=== PATIENT | male | born 1960 | race Caucasian/White ===

== ENCOUNTER 2016-11-12 14:20 | Outpatient (CLI) ==
[2016-07-01 14:35] VITALS: BMI 22.3
== END 2016-11-12 14:21 | disposition home or self-care (01) ==
LOC: LAB 14:20
PROVIDERS: ATTEND Psychiatry & Neurology Neurology
DX: G60.9 Hereditary and idiopathic neuropathy, unspecified (principal); I10 Essential (primary) hypertension; E78.5 Hyperlipidemia, unspecified; Z12.5 Encounter for screening for malignant neoplasm of prostate
CPT/HCPCS: 36415

== ENCOUNTER 2017-04-01 16:29 | Outpatient (CLI) ==
[2016-07-01 14:35] VITALS: BMI 22.3
[2017-04-01 16:43] LABS: BASOPHILS # (AUTO) 0.1 K/uL (0-0.2); BASOPHILS % (AUTO) 0.9 % (0.0-3.0); EOSINOPHILS # (AUTO) 0.2 K/ul (0.0-0.7); EOSINOPHILS % (AUTO) 2.4 % (0.0-7.0); HEMATOCRIT 37.5 % (42.0-52.0); HEMOGLOBIN 12.7 g/dl (14.0-18.0); IMMATURE GRANULOCYTE % (AUTO) 0.3 % (0.0-5.0); LYMPHOCYTES # (AUTO) 1.5 K/uL (0.60-3.4); LYMPHOCYTES % (AUTO) 19.1 (10.0-50.0); MEAN CORPUSCULAR HEMOGLOBIN 32.5 pg (27.0-31.0); MEAN CORPUSCULAR HGB CONC 33.9 (31.8-35.4); MEAN CORPUSCULAR VOLUME 95.9 fl (80.0-94.0); MONOCYTES # (AUTO) 0.7 K/uL (0.4-2.0); MONOCYTES % (AUTO) 8.4 (0-10); NEUTROPHILS # (AUTO) 5.4 K/ul (2.0-6.9); NEUTROPHILS % (AUTO) 68.9; PLATELET COUNT 281 10^3/uL (140-440); RED BLOOD COUNT 3.91 10^6/ul (4.70-6.10); WHITE BLOOD COUNT 7.86 K/ul (4.2-10.2)
[2017-04-01 17:19] LABS: ALBUMIN 3.9 g/dL (3.4-5.0); ALBUMIN/GLOBULIN RATIO 1.44; ANION GAP 12.3; BILIRUBIN,TOTAL 0.25 mg/dL (0.00-1.20); BUN/CREATININE RATIO 14.77; CALCIUM 8.8 mg/dL (8.2-10.2); CHOL/HDL RATIO 3.3 (4.5-6.4); CREATININE 0.88 mg/dL (0.60-1.10); POTASSIUM 4.3 mmol/L (3.5-5.1); TOTAL PROTEIN 6.6 g/dL (6.4-8.2)
== END 2017-04-01 16:30 | disposition home or self-care (01) ==
LOC: LAB 16:29
PROVIDERS: ATTEND Emergency Medicine
DX: E78.5 Hyperlipidemia, unspecified (principal); G62.9 Polyneuropathy, unspecified; I10 Essential (primary) hypertension; Z12.5 Encounter for screening for malignant neoplasm of prostate
CPT/HCPCS: 36415; 80053; 80061; 84443; 85025

== ENCOUNTER 2017-06-19 11:38 | Outpatient (CLI) ==
[2016-07-01 14:35] VITALS: BMI 22.3
--- NOTE | 2017-06-19 12:08 | DI ---
EXAM: Radiographs, left elbow HISTORY: Left elbow pain and swelling. COMPARISON: None available. TECHNIQUE: Three views. FINDINGS: Bone mineralization is normal. No fracture or dislocation identified. Moderate to severe marginal osteophyte formation seen at the humeral ulnar joint and radiocapitellar joint. Some joint space narrowing also present. Well corticated ossific fragment adjacent to the medial humeral condy le noted. No rito erosions are seen. There is an elbow joint effusion. IMPRESSION: 1. 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 2. Possible old medial collateral ligament injury.
== END 2017-06-19 11:39 | disposition home or self-care (01) ==
LOC: RAD 11:38
PROVIDERS: ATTEND Physician Assistant
DX: M25.522 Pain in left elbow (principal); M25.422 Effusion, left elbow

== ENCOUNTER 2017-08-21 12:14 | Outpatient (CLI) ==
[2016-07-01 14:35] VITALS: BMI 22.3
--- NOTE | 2017-08-21 13:57 | MRI ---
EXAM: MRI of the left elbow without contrast COMPARISON: Left elbow radiographs 06/19/2017. HISTORY: Left elbow swelling and pain. No known injury. TECHNIQUE: Multiplanar noncontrast MR images of the left elbow were acquired using a 1.2 Anna magne t. Several sequences are moderately limited by patient motion artifact. FINDINGS: There is marked osteoarthrosis involving the ulnohumeral and radiocapitellar articulations with full-thickness cartilage defects and large marginal osteophytes with subchondral edema/cystic c hange/sclerosis. Marrow edema within the head and neck of the radius without evidence of an acute fr acture or osteomyelitis. There is a moderate sized joint effusion and with a large loose body early childhood specialist iorly measuring 1.4 cm in size. Chronic-appearing deformity of the medial epicondyle/condyle of the humerus with multiple well corticated ossifications along the attachment the ulnar collateral ligamen t and common flexor tendon suggesting sequela of old trauma/heterotopic ossification. Limited assess ment of the collateral ligaments on this non arthrographic study. There is abnormal signal and morph ology of the proximal fibers of the ulnar collateral ligament with attenuation ligament fibers consis tent with least a high-grade partial tear and possibly a complete tear with at most thin intact fiber s remaining. There is also partial tear/stripping of the distal fibers of the ulnar collateral ligame nt at its ulnar attachment. Marked common flexor tendinosis with partial tear of the deep fibers. T here appear to be some thin residual intact fibers remaining. Sprain with scarring of the radial collateral ligament without a definite full-thickness tear. Commo n extensor tendinosis with partial tear of the insertional fibers though intact fibers are identified . The ulnar nerve is displaced anteriorly and medially relative to the cubital tunnel with nerve extend ing into the medial subcutaneous tissues along the medial/posteromedial margin of the medial epicondy le at that level. No soft tissue mass identified. There is mild distal triceps tendinosis and enthesopathy without a tendon tear. Moderate distal dean ps tendinosis enthesopathy without a tendon tear. The distal brachialis tendon is intact. IMPRESSION: 1. Marked degenerative changes of the elbow as described. Moderate joint effusion, nonspecific. Os teochondral body posteriorly. 2. Chronic-appearing deformity of the medial epicondyle/condyle of the humerus with well corticated ossification along the attachment of the ulnar collateral ligament and common flexor tendon related t o sequela of old trauma/heterotopic ossification. Near complete to complete tear of the proximal fibe rs of the ulnar collateral ligament as described with at most thin intact fibers remaining. Partial tears stripping of the distal insertional fibers as well. Sequela of medial epicondylitis with tendi nosis and partial tear of the common flexor tendon with some thin residual intact fibers identified. 3. Lateral epicondylitis with tendinosis and partial tear of the common extensor tendon at its later al epicondyle attachment. 4. Anteromedial subluxation of the ulnar nerve relative to the cubital tunnel with nerve located in the medial/posteromedial subcutaneous tissues at the level of the medial epicondyle as described. Car eful correlation is recommended prior to any surgery at that site. 5. Distal triceps and biceps tendinosis without a tendon tear.
== END 2017-08-21 12:15 | disposition home or self-care (01) ==
LOC: RAD 12:14
PROVIDERS: ATTEND Emergency Medicine
DX: M25.522 Pain in left elbow (principal)

== ENCOUNTER 2018-05-06 15:50 | Outpatient (CLI) ==
[2016-07-01 14:35] VITALS: BMI 22.3
== END 2018-05-06 15:51 | disposition home or self-care (01) ==
LOC: RHC-LAB 15:50
PROVIDERS: ATTEND Emergency Medicine
DX: E78.5 Hyperlipidemia, unspecified (principal); I10 Essential (primary) hypertension; G62.9 Polyneuropathy, unspecified; N52.8 Other male erectile dysfunction
CPT/HCPCS: 36415; 80053; 80061; 84403; 84443; 85025

== ENCOUNTER 2018-09-29 09:12 | Outpatient (CLI) ==
[2016-07-01 14:35] VITALS: BMI 22.3
== END 2018-09-29 09:13 | disposition home or self-care (01) ==
LOC: LAB 09:12
PROVIDERS: ATTEND Nurse Practitioner Family
DX: E78.5 Hyperlipidemia, unspecified (principal); I10 Essential (primary) hypertension; Z12.5 Encounter for screening for malignant neoplasm of prostate
CPT/HCPCS: 36415; 80053; 80061; 85025

== ENCOUNTER 2018-10-01 13:43 | Outpatient (CLI) ==
[2016-07-01 14:35] VITALS: BMI 22.3
--- NOTE | 2018-10-01 15:03 | DI ---
EXAM: Two-view chest HISTORY: Chest pain TECHNIQUE: Frontal and lateral views of the chest were obtained. FINDINGS: The heart is normal size. Lungs are clear. The pulmonary vasculature appears normal. IMPRESSION: No active cardiopulmonary disease.
== END 2018-10-01 13:44 | disposition home or self-care (01) ==
LOC: RAD 13:43
PROVIDERS: ATTEND Nurse Practitioner Family
DX: R07.1 Chest pain on breathing (principal)

== ENCOUNTER 2018-12-31 13:55 | Outpatient (CLI) ==
[2016-07-01 14:35] VITALS: BMI 22.3
--- NOTE | 2018-12-31 16:07 | DI ---
EXAM: RIGHT KNEE. HISTORY: Knee pain. FINDINGS: Right knee three-view. There is mild tricompartment osteoarthritis. No fracture or joint effusion. Soft tissues are within normal limits. IMPRESSION: Mild tricompartment osteoarthritis.
== END 2018-12-31 13:56 | disposition home or self-care (01) ==
LOC: RAD 13:55
PROVIDERS: ATTEND Nurse Practitioner Family
DX: M25.561 Pain in right knee (principal); W19.XXXA Unspecified fall, initial encounter

== ENCOUNTER 2019-01-04 12:45 | Outpatient (CLI) ==
[2016-07-01 14:35] VITALS: BMI 22.3
--- NOTE | 2019-01-04 18:18 | MRI ---
EXAM: Brain MRI without contrast. HISTORY: Amnesia. Fell and hit head. Memory loss. COMPARISON: Brain MRI 01/15/2015. TECHNIQUE: Multiplanar, multisequence MR images were acquired of the brain without contrast. FINDINGS: The midline structures are central and the craniocervical junction is unremarkable. The v entricles, sulci and cisterns are prominent compatible age related involutional changes. There are n o abnormal extra-axial fluid collections. The brain parenchyma has no diffusion restriction to suggest acute hypoperfusion or infarction. Ther e is a 2-3 mm T2 hyperintensity in the anterior right external capsule and a possible punctate T2 hyp erintensity or vascular channel in the anterior superior right frontal subcortical white matter. Thi s is nonspecific. There are no abnormal foci of dark gradient echo signal. The corpus callosum is n ormal. The pituitary gland is unremarkable. There are no intraorbital masses. Mild mucosal thickening is present in the frontal sinus. There is mild to moderate mucosal thickening in the ethmoid air cells bilaterally. There is mild rightward n navdeep septal deviation. Mild to moderate polypoid mucosal thickening is present in the right maxillar y sinus. Middle ears and mastoids are unremarkable. Expected flow voids are present in the major intracranial arteries. The superior sagittal sinus has a normal flow void and drains preferentially into the right transverse sinus, sigmoid sinus and inter nal jugular vein which are mildly dominant to the left. This has a common normal variant. The upper cervical spine shows possible partial ankylosis of the posterior C2 and C3 vertebra and fac et joints, most consistent with incomplete segmentation. IMPRESSION: 1. No intracranial mass, hemorrhage or acute cerebral infarct. 2. A single to 3 mm T2 hyperintensities present. The right anterior external capsule which is nonsp ecific. 3. Mild to moderate right ethmoiditis and right maxillary sinus disease.
== END 2019-01-04 12:46 | disposition home or self-care (01) ==
LOC: RAD 12:45
PROVIDERS: ATTEND Nurse Practitioner Family
DX: R41.3 Other amnesia (principal); R51 Headache; W19.XXXA Unspecified fall, initial encounter; Z99.89 Dependence on other enabling machines and devices

== ENCOUNTER 2019-02-05 17:45 | Emergency (ER) ==
[2019-02-05 17:45] VITALS: BMI 22.3
[2019-02-05 17:53] VITALS: BP 152/79; TEMP 96.5
--- NOTE | 2019-02-05 18:43 | ED.PDOC ---
General ED Provider: Dr. GLENDY AVILA Chief Complaint: Fall Stated Complaint: 58 y old male tending to the animal rescue skilled nursing/ kittens/ did. scratch the right harley against a chicken wire.Small healing dry laceration at the right external corner of the eye,pactically encrouaching onthe upper lid.No corneal inuury,hematoma or oain.No escessuve lacrimation compared to he opoosite sie,Vision intact,Patient has no curent Dt.Accident is 26 h old Time Seen by Physician: 19:00 Mode of Arrival: Walk-In Information Source: Patient Exam Limitations: No limitations Primary Care Provider: ARLYN LARKIN Nursing and Triage Documentation Reviewed and Agree: Yes Does patient meet sepsis criteria?: No System Inflammatory Response Syndrome: Not Applicable Sepsis Protocol: For patient's 13 years and over: Temp is 96.8 and below OR 101 and greater Pulse >90 BPM Resp >20/minute Acutely Altered Mental Status Are patient's symptoms suggestive of a new infection, such as: -Pneumonia -Skin, Soft Tissue -Endocarditis -UTI -Bone, Joint Infection -Implantable Device -Acute Abdominal Infection -Wound Infection -Meningitis -Blood Stream Catheter Infection -Unknown Skin Complaint Exam - Skin/Soft Tissue Complaint/Exam Onset/Duration: 26 hours Symptoms Are: Still present Timing: Constant Initial Severity: Mild Current Severity: Mild Character: Reports: Redness, Swelling, Painful Aggravating: Reports: Touch Alleviating: Reports: Medications Associated Signs and Symptoms: Reports: Itching, Tenderness Related History: Reports: Recent trauma Related Surgical History: Reports: None Recent Exposure to Others w/Similar Symptoms: No Skin Findings: Present: Erythema Differential Diagnoses: Cellulitis, Infection Review of Systems - Review Of Systems Constitutional: Reports: No symptoms Eyes: Reports: No symptoms Ears, Nose, Mouth, Throat: Reports: No symptoms Respiratory: Reports: No symptoms Cardiac: Reports: No symptoms GI: Reports: No symptoms : Reports: No symptoms Musculoskeletal: Reports: No symptoms Skin: Reports: Bruising, Other Neurological: Reports: No symptoms Endocrine: Reports: No symptoms Hematologic/Lymphatic: Reports: No symptoms All Other Systems: Reviewed and Negative Past Medical History - Past Medical History Endocrine: Reports: Dyslipidemia Cardiovascular: Reports: CAD, [place], Hypertension Respiratory: Reports: None Hematological: Reports: None Gastrointestinal: Reports: GERD Genitourinary: Reports: None Neuro/Psych: Reports: Anxiety, Depression Musculoskeletal: Reports: None, Other (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) Cancer: Reports: None Other Pertinent Past Medical History: MULTIPLE SYSTEM ATROPHY-SHY DRAGERS/ PARKINSON TYPE - Surgical History General Surgical History: Reports: Appendectomy, Cholecystectomy, Orthopedic ( RT ARM amputation, LEFT ARM FX, R KNEE SCOPE MENISCUS REPAIR) - Family History Family History: Reports: Unknown - Social History Smoking Status: Current some day smoker Hx Substance Use: No Alcohol Screening: None - Immunizations Tetanus Shot up to Date: No Physical Exam - Physical Exam Appearance: Well-appearing Ill-appearing: None Pain Distress: None Eyes: SEVERIANO, EOMI, Conjunctiva clear ENT: Ears normal, Nose normal, Oropharynx normal Neck: Supple Respiratory: Airway patent, Breath sounds clear Cardiovascular: RRR, Pulses normal, Bradycardia GI/: Soft, Nontender Musculoskeletal: Normal strength, ROM intact, No edema Skin: Warm, Dry, Normal color Neurological: Sensation intact, Alert, Oriented Psychiatric: Affect appropriate Critical Care Note - Critical Care Note Total Time (mins): 0 Course - Course Orders, Labs, Meds: Orders Category Date Time Status Clindamycin HCl [Cleocin] MEDS 02/05/19 18:49 Stat 300 mg PO ONCE STA Doxycycline Hyclate MEDS 02/05/19 18:52 Stat 100 mg PO ONCE STA Erythromycin Opth Oint [Erythromycin] MEDS 02/05/19 18:45 Stat 1 applic OP ONCE STA Tetanus and Diphtheria Tox/Pf [Tenivac] MEDS 02/05/19 18:44 Once 0.5 ml IM .ONCE ONE Medications Discontinued Medications Generic Name Dose Route Start Last Admin Trade Name Dashawnq PRN Reason Stop Dose Admin Clindamycin HCl 300 mg 02/05/19 18:49 Cleocin PO 02/05/19 18:50 ONCE STA Doxycycline Hyclate 100 mg 02/05/19 18:52 Doxycycline Hyclate PO 02/05/19 18:53 ONCE STA Erythromycin 1 applic 02/05/19 18:45 Erythromycin OP 02/05/19 18:46 ONCE STA Tetanus/Diphtheria Toxoids Adsorbed 0.5 ml 02/05/19 18:44 Tenivac IM 02/05/19 18:45 .ONCE ONE Vital Signs: Temp Pulse Resp BP Pulse Ox 02/05/19 17:48 96.5 F L 74 16 152/79 H 94 L Departure - Departure Time of Disposition: 19:02 Disposition: HOME SELF-CARE Discharge Problem: Facial laceration Instructions: Laceration (ED) Condition: Good Pt referred to PMD for follow-up: Yes (PCP thursday) IPMP verified?: No Additional Instructions: Doxycycline 100mg tid x 10 d,Clindamycin 300 mg tid x 7 dYS,eRYTHROMYCIN OPHTALMC ontb tiod to laceration x 5 days. Allergies/Adverse Reactions: Allergies shrimp Allergy (Mild, Uncoded 07/01/16 14:35) rash pt notified to get medical alert necklace Home Medications: Ambulatory Orders Hydrocodone/Acetaminophen [Lortab 10-325 Mg Tablet] 1 each PO QID 03/22/14 Aspirin [Aspirin EC] 81 mg PO DAILYWM 05/30/14 Cyanocobalamin (Vitamin B-12) [Vitamin B-12] 250 mcg PO DAILY 05/13/16 Carbidopa/Levodopa [Sinemet 25-100 Mg Tablet] 1 each PO 5XD 07/23/16 Disposition Discussed With: Patient, Family
[2019-02-05] MEDS ORDERED: TENIVAC IM ONE (18:44)
[2019-02-05] MEDS ORDERED: ERYTHROMYCIN OP STA (18:45)
[2019-02-05] MEDS ORDERED: CLEOCIN PO STA (18:49)
[2019-02-05] MEDS ORDERED: DOXYCYCLINE HYCLATE PO STA (18:52)
== END 2019-02-05 19:38 | disposition home or self-care (01) ==
LOC: ED 17:45
DX: S01.111A Laceration without foreign body of right eyelid and periocular area, initial encounter (principal); W26.8XXA Contact with other sharp object(s), not elsewhere classified, initial encounter; F17.210 Nicotine dependence, cigarettes, uncomplicated
CPT/HCPCS: 90471; 90714; 99282

== ENCOUNTER 2019-03-01 21:13 | Emergency (ER) ==
[2019-03-01 21:23] VITALS: TEMP 97.2
[2019-03-01] MEDS ORDERED: ZOFRAN 4 MG/2 ML IVP STA (21:48)
[2019-03-01] MEDS ORDERED: SODIUM CHLORIDE 1,000 ML IV STA (21:48)
[2019-03-01 21:50] VITALS: BMI 22.1
[2019-03-01 22:04] VITALS: BP 124/70
--- NOTE | 2019-03-01 22:21 | CT ---
Exam: CT of the abdomen and pelvis without contrast History: Vomiting Technique: [address] of the abdomen pelvis without intravascular contrast FINDINGS: Emphysematous changes of the lung bases. No significant liver abnormality. The adrenals, pancreas and spleen are unremarkable. The stomach and hiatus are unremarkable.Prior cholecystectomy . Kidneys and proximal collecting system are unremarkable. The appendix is not seen. Bowel loops d emonstrate normal caliber. No inflamatory change seen in the mesentery or retroperitoneum. Minor at herosclerotic vascular calcification of the aorta without aneurysm. Pelvic genitourinary structures appear normal. Pelvic bowel loops are unremarkable. No inflammatory change in the pelvic fat. No acute abnormality of the abdominal or pelvic skeleton. Multilevel end plate degenerative change of the lumbar spine. Impression: 1. No inflammatory process, bowel or urinary obstruction. No acute findings of the abdomen or pelvi s.
--- NOTE | 2019-03-01 22:22 | CT ---
EXAM: CT head without contrast. HISTORY: Dizziness. PROCEDURE: Contiguous axial CT images of the head without contrast with coronal and sagittal reforma ts. FINDINGS: The ventricles and basal cisterns are normal in size and configuration. No evidence of m ass or midline shift. No intracranial hemorrhage or evidence of large vessel infarct. No extra-axia l fluid collection. There is mucosal thickening in the paranasal sinuses. The mastoid air cells are normal in appearance. Impression: Negative CT of the head. Paranasal sinusitis.
--- NOTE | 2019-03-01 23:27 | ED.PDOC ---
General ED Provider: Dr. HENRIETTA MCKOY-ER Chief Complaint: Nausea/Vomiting Stated Complaint: i am sick and vomiting Time Seen by Physician: 21:15 Mode of Arrival: Wheelchair Information Source: Patient Exam Limitations: No limitations Primary Care Provider: ARLYN LARKIN Nursing and Triage Documentation Reviewed and Agree: Yes Does patient meet sepsis criteria?: No System Inflammatory Response Syndrome: Not Applicable Sepsis Protocol: For patient's 13 years and over: Temp is 96.8 and below OR 101 and greater Pulse >90 BPM Resp >20/minute Acutely Altered Mental Status Are patient's symptoms suggestive of a new infection, such as: -Pneumonia -Skin, Soft Tissue -Endocarditis -UTI -Bone, Joint Infection -Implantable Device -Acute Abdominal Infection -Wound Infection -Meningitis -Blood Stream Catheter Infection -Unknown GI Complaint Exam - Vomiting/Diarrhea Complaint/Exam Onset/Duration: 24 hrs Symptoms Are: Still present Initial Severity: Mild Current Severity: Moderate Character of Vomiting: Reports: Non-bilious Aggravating: Reports: None Alleviating: Reports: None Associated Signs and Symptoms: Denies: Dizziness, Light-headedness, Melena, Hematemesis, Fever, Abdominal pain, Cramping Kussmaul Respirations Present: No Differential Diagnoses: Dehydration, Viral Gastroenteritis Review of Systems - Review Of Systems Constitutional: Reports: No symptoms Eyes: Reports: No symptoms Ears, Nose, Mouth, Throat: Reports: No symptoms Respiratory: Reports: No symptoms Cardiac: Reports: No symptoms GI: Reports: No symptoms : Reports: No symptoms Musculoskeletal: Reports: No symptoms Skin: Reports: No symptoms Neurological: Reports: No symptoms Endocrine: Reports: No symptoms Hematologic/Lymphatic: Reports: No symptoms All Other Systems: Reviewed and Negative Past Medical History - Past Medical History Previously Healthy: No Endocrine: Reports: Dyslipidemia Cardiovascular: Reports: CAD, [place], Hypertension Respiratory: Reports: None Hematological: Reports: None Gastrointestinal: Reports: GERD Genitourinary: Reports: None Neuro/Psych: Reports: Anxiety, Depression Musculoskeletal: Reports: None, Other (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) Cancer: Reports: None Other Pertinent Past Medical History: MULTIPLE SYSTEM ATROPHY-SHY DRAGERS/ PARKINSON TYPE - Surgical History General Surgical History: Reports: Appendectomy, Cholecystectomy, Orthopedic ( RT ARM amputation, LEFT ARM FX, R KNEE SCOPE MENISCUS REPAIR) - Family History Family History: Reports: Unknown - Social History Smoking Status: Current every day smoker, Heavy tobacco smoker Hx Substance Use: No Alcohol Screening: None - Immunizations Tetanus Shot up to Date: Yes Physical Exam - Physical Exam Appearance: Well-appearing, No pain distress, Well-nourished Eyes: SEVERIANO, EOMI, Conjunctiva clear ENT: Ears normal, Nose normal, Oropharynx normal Neck: Supple Respiratory: Airway patent, Breath sounds clear, Breath sounds equal, Respirations nonlabored Cardiovascular: RRR, Pulses normal, No rub, No murmur GI/: Soft, Nontender, No masses, Bowel sounds normal, No Organomegaly Musculoskeletal: Normal strength, ROM intact, No edema, No calf tenderness Skin: Warm, Dry, Normal color Neurological: Sensation intact, Motor intact, Reflexes intact, Cranial nerves intact, Alert, Oriented Psychiatric: Affect appropriate, Mood appropriate Interpretation - Radiology Interpretation Radiology Interpretation By: Radiologist Radiology Results: Negative Exam Interpreted: CT Scan - EKG Interpretation Time of EKG #1: 23:27 Rate: Jarod Rhythm: Sinus Ectopy: None Lyles: NL ST Segment: Normal Interpretation: sinus jarod Re-Evaluation - Re-Evaluation Time of Re-Evaluation: 23:27 Status: Improved Vital Signs Stable: Yes Pain Level: 0 Appearance: NAD Lungs: Clear Skin: Warm and Dry Neuro: Alert and Oriented X3 CV: RRR Critical Care Note - Critical Care Note Total Time (mins): 0 Course - Course Hematology/Chemistry: 03/01/19 22:05 03/01/19 22:05 Orders, Labs, Meds: Lab Review 03/01/19 03/01/19 03/01/19 22:05 22:05 23:00 WBC 7.81 RBC 4.65 L Hgb 14.3 Hct 44.7 MCV 96.1 H MCH 30.8 MCHC 32.0 RDW Coeff of Karri 14.9 H Plt Count 224 Immature Gran % (Auto) 0.4 Neut % (Auto) 76.7 Lymph % (Auto) 12.0 [place] % (Auto) 7.6 Eos % (Auto) 2.7 Baso % (Auto) 0.6 Immature Gran # (Auto) 0.0 Neut # (Auto) 6.0 Lymph # (Auto) 0.9 [place] # (Auto) 0.6 Eos # (Auto) 0.2 Baso # (Auto) 0.1 Sodium 140.6 Potassium 3.66 Chloride 101.5 Carbon Dioxide 29.7 Anion Gap 13.06 BUN 13.5 Creatinine 0.78 Estimated GFR (MDRD) 103.00 BUN/Creatinine Ratio 17.30 Glucose 120.6 H Calcium 9.09 Total Bilirubin 0.61 AST 25.2 ALT 7.4 Alkaline Phosphatase 91.9 Total Creatine Kinase 115.7 CK-MB (CK-2) 2.240 CK-MB (CK-2) % 1.9300 Troponin I < 0.012 Total Protein 7.11 Albumin 4.41 Globulin 2.70 Albumin/Globulin Ratio 1.63 Amylase 82.6 Lipase 74.4 Urine Color Yellow Urine Clarity Clear Urine pH 5.5 Ur Specific [place] >=1.030 Urine Protein Trace Urine Glucose (UA) Negative Urine Ketones Trace Urine Blood Negative Urine Nitrite Negative Urine Bilirubin Negative Urine Urobilinogen 0.2 Ur Leukocyte Esterase Negative Urine Microscopic RBC 2-5 Ur Squamous Epith Cells 0-2 Urine Mucus 1+ Orders Category Date Time Status EKG-(ED ONLY) Stat CARDIO 03/01/19 21:47 Ordered ED STEMHOLE BORER AND TOPPER APPLIED .ONCE EMERGENCY 03/01/19 21:48 Active ED IV/MEDIPORT/POWERPORT .ONCE EMERGENCY 03/01/19 21:48 Active AMYLASE Stat LAB 03/01/19 22:05 Completed CBC W/ AUTO DIFF Stat LAB 03/01/19 22:05 Completed COMPREHENSIVE METABOLIC PANEL Stat LAB 03/01/19 22:05 Completed CREATINE KINASE Stat LAB 03/01/19 22:05 Completed LIPASE Stat LAB 03/01/19 22:05 Completed TROPONIN I Stat LAB 03/01/19 22:05 Completed URINALYSIS C & S IF INDICATED Stat LAB 03/01/19 23:00 Completed 0.9 % Sodium Chloride [Saline Flush] MEDS 03/01/19 21:47 Ordered 1 syr IVF PRN PRN Ondansetron HCl/Pf [Zofran 4 mg/2 ml] MEDS 03/01/19 21:48 Discontinued 4 mg IVP ONCE STA Sodium Chloride 0.9% [Sodium Chloride] 1,000 ml MEDS 03/01/19 21:[address] ABDOMEN/PELVIS WO CONTRAST Stat RADS 03/01/19 21:[address] HEAD W/O CONTRAST Stat RADS 03/01/19 21:48 Completed Medications Generic Name Dose Route Start Last Admin Trade Name Freq PRN Reason Stop Dose Admin Sodium Chloride 1 syr 03/01/19 21:47 03/01/19 22:06 Saline Flush IVF 1 syr PRN PRN Administration To flush IV Discontinued Medications Generic Name Dose Route Start Last Admin Trade Name Braxton PRN Reason Stop Dose Admin Sodium Chloride 1,000 mls @ 1,000 mls/hr 03/01/19 21:48 03/01/19 22:06 Sodium Chloride IV 03/01/19 22:47 1,000 mls/hr BOLUS STA Administration Ondansetron HCl 4 mg 03/01/19 21:48 03/01/19 22:08 Zofran 4 Mg/2 Ml IVP 03/01/19 21:49 4 mg ONCE STA Administration Vital Signs: Temp Pulse Resp BP Pulse Ox 03/01/19 21:45 124/70 03/01/19 21:36 78 115/86 03/01/19 21:35 69 142/85 H 03/01/19 21:14 97.2 F L 74 20 137/87 95 Departure - Departure Time of Disposition: 23:27 Disposition: HOME SELF-CARE Discharge Problem: Vomiting Instructions: Acute Nausea and Vomiting (ED) Condition: Good Pt referred to PMD for follow-up: Yes IPMP verified?: No Additional Instructions: clear liquids and advance diet---f/u with pcp Allergies/Adverse Reactions: Allergies shrimp Allergy (Mild, Uncoded 03/01/19 21:23) rash pt notified to get medical alert necklace Home Medications: Ambulatory Orders Hydrocodone/Acetaminophen [Lortab 10-325 Mg Tablet] 1 each PO QID 03/22/14 Aspirin [Aspirin EC] 81 mg PO DAILYWM 05/30/14 Cyanocobalamin (Vitamin B-12) [Vitamin B-12] 250 mcg PO DAILY 05/13/16 Disposition Discussed With: Patient, Family
== END 2019-03-01 23:39 | disposition home or self-care (01) ==
LOC: ED 21:13
DX: R11.2 Nausea with vomiting, unspecified (principal); E78.5 Hyperlipidemia, unspecified; I25.10 Atherosclerotic heart disease of native coronary artery without angina pectoris; I10 Essential (primary) hypertension; I25.2 Old myocardial infarction; K21.9 Gastro-esophageal reflux disease without esophagitis; F17.210 Nicotine dependence, cigarettes, uncomplicated
CPT/HCPCS: 36415; 80053; 81001; 82150; 82550; 82553; 83690; 84484; 85025; 93005; 93010; 96361; 96374; 99283